=== PATIENT | female | born 1985 | race Caucasian/White ===

== ENCOUNTER 2019-08-04 15:58 | Inpatient (IN) | payer OTHER ==
[2019-08-04 17:30] LABS: Bacteria,Urine 2+ /HPF (Negative); Bilirubin,Urine NEG (Negative); Blood,Urine MOD (Negative); Color,Urine Straw (Yellow); Protein,Urine <15 mg/dL mg/dL (Negative); Urobilinogen,Urine < 2.0 mg/dL (<2.0)
[2019-08-04] MEDS ORDERED: fentaNYL 100 MCG/2 ML INJ IV PRN (20:45)
[2019-08-04] MEDS ORDERED: TERBUTALINE 1 MG/1 ML INJ SUB-Q PRN (20:45)
[2019-08-04] MEDS ORDERED: LIDOCAINE (2%) 20 MG/1 ML VIAL 20 ML MDV INFILTRATI ONE (20:45)
[2019-08-04] MEDS ORDERED: ePHEDrine SULFATE 50 MG/1 ML INJ IV PRN (20:45)
[2019-08-04] MEDS ORDERED: OXYTOCIN 20 UNIT/1000ML DRIP 20 UNITS/1,000 ML BAG IV SCH (21:00)
[2019-08-04] MEDS ORDERED: LACTATED RINGERS 1,000 ML IV SCH (21:00)
--- NOTE | 2019-08-04 21:01 | History and Physical Report ---
History of Present Illness Date of examination: 08/04/19 Date of admission: 08/04/2019 Chief complaint: Contractions, vaginal spotting History of present illness: 33 year old presents to L&D with contractions and small amount of vaginal spotting twice today. Patient denies leaking of fluid. Patient received care at [facility] and she brings recrods with her. LMP 10/29/18. EDC 08/12/19 by 6 week US. significant for the following: UTI (treated and RYAN negative), elevated 1 hour sugar test (normal 3 hour OGTT). labs are as follows: O+, antibody screen negative, rubella immune, hepatitis B surface antigen negative, RPR nonreactive, GC negative, CT negative, GBS negative, 1 hour sugar test 160, 3 hour OGTT negative, quad screen negative. 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 denies: smoking, alcohol abuse, prescription drug abuse, IV drug use - Obstetrical History Expected Date of Delivery: 08/12/19 Actual Gestation: 38 Week(s) 6 Day(s) : 5 Para: 1 Hx # Term Pregnancies: 1 Number of Pregnancies: 0 Spontaneous Abortions: 3 Induced : 0 Number of Living Children: 1 Medications and Allergies Allergies Allergy/AdvReac Type Severity Reaction Status Date / Time No Known Allergies Allergy Verified 07/30/13 18:44 Home Medications Medication Instructions Recorded Confirmed Last Taken Type Cephalexin [Keflex] 500 mg PO TID #21 capsule 07/25/13 Unknown Rx Promethazine [Phenergan] 25 mg PO Q6H PRN #12 tablet 07/25/13 Unknown Rx Ondansetron [Zofran] 4 mg PO Q6HR PRN #12 tablet 07/30/13 Unknown Rx HYDROcodone/APAP 5-325 [[place] 1 each PO Q6HR PRN #12 tablet 08/02/13 Unknown Rx 5-325 mg TAB] Methylergonovine [Methergine] 0.2 mg PO Q8HR #9 tablet 08/02/13 Unknown Rx Active Meds: Active Medications Ephedrine Sulfate (Ephedrine Sulfate) 10 mg IV Q2M PRN PRN Reason: Hypotension Fentanyl (Sublimaze) 100 mcg IV Q2H PRN PRN Reason: Labor Pain Oxytocin/Sodium Chloride (Pitocin/Ns 20 Unit/1000ml Drip) 20 units in 1,000 mls @ 125 mls/hr IV DIRECT TANIYA Lactated Ringer's (Lactated Ringers) 1,000 mls @ 125 mls/hr IV DIRECT TANIYA Lidocaine (Xylocaine 2%) 20 ml INFILTRATI ONCE ONE Stop: 08/04/19 20:46 Terbutaline Sulfate (Brethine) 0.25 mg SUB-Q ONCE PRN PRN Reason: Hyperstimulation/Hypertonicity Review of Systems All systems: negative (contractions, vaginal spotting) - Vital Signs Vital signs: Vital Signs Pulse Pulse Ox 66 94 08/04/19 16:57 08/04/19 16:57 Temp Pulse Resp BP Pulse Ox 98.1 F 71 20 113/69 99 08/04/19 16:59 08/04/19 20:47 08/04/19 16:59 08/04/19 16:59 08/04/19 20:47 - Physical Exam Abdomen: Positive: normal appearance, soft. Negative: distention, tenderness, guarding, rigidity Genitourinary (Female): Positive: normal external genitalia, normal perenium. Negative: perineal/vulvar lesions Vagina: Positive: normal moisture Uterus: Positive: enlarged. Negative: tender Anus/Rectum: Positive: normal perianal skin Extremities: Positive: normal. Negative: tenderness, edema - Obstetrical FHR: category 1 Uterine Contraction Monitor Mode: External Cervical Dilatation: 5 Cervical Effacement Percentage: 90 station: -3 Results Abnormal lab results 08/04/19 Range/Units 16:50 Urine WBC (Auto) 25.0 H (0.0-6.0) /HPF All other labs normal. Assessment and Plan A: at 38 weeks, 6 days gestation. Active labor. GBS negative. P: Admit. Continuous EFM. Anticipate vaginal .
--- NOTE | 2019-08-04 22:40 | Ultrasound Report ---
ULTRASOUND OBSTETRIC LIMITED ULTRASOUND BIOPHYSICAL PROFILE INDICATION / CLINICAL INFORMATION: Abdominal pain. Spotting. Evaluate placenta and amniotic fluid index. COMPARISON: None available. FINDINGS: BREATHING MOVEMENT = 0 GROSS BODY MOVEMENT = 2 TONE = 2 QUALITATIVE AMNIOTIC FLUID VOLUME = 2 TOTAL BIOPHYSICAL SCORE = 6/8 AMNIOTIC FLUID INDEX (cm) = 7.9 PRESENTATION: Cephalic. HEART RATE (beats per minute): 140 ADDITIONAL FINDINGS: The placenta appears unremarkable and is in a right lateral position. IMPRESSION: 1. Biophysical Score = 6/8 2. Amniotic fluid index of 7.9 cm. Signer Name: Smooth Cano MD Signed: 08/04/2019 10:36 PM Workstation Name: [id number]
--- NOTE | 2019-08-04 22:48 | Event Note ---
Date: 08/04/19 SVE 6./-2.
[2019-08-04 22:59] LABS: Hematocrit 38.5 % (30.3-42.9); Hemoglobin 12.9 gm/dl (10.1-14.3); Mean Corpuscular HGB Conc 34 % (30-34); Mean Corpuscular Volume 90 fl (79-97); Platelet Count 157 K/mm3 (140-440); Red Blood Count 4.26 M/mm3 (3.65-5.03); Red Cell Distribution Width 14.4 % (13.2-15.2)
[2019-08-05] MEDS ORDERED: ePHEDrine SULFATE 50 MG/1 ML INJ IV PRN (00:17)
[2019-08-05] MEDS ORDERED: NALOXONE 2 MG/2 ML INJ IV PRN (00:17)
--- NOTE | 2019-08-05 00:31 | Anesthesia Consultation ---
Anesthesia Consult and Med Hx Date of service: 08/05/19 - Airway Anesthetic Teeth Evaluation: Good ROM Head & Neck: Adequate Mental/Hyoid Distance: Adequate Mallampati Class: Class II Intubation Access Assessment: Probably Good - Pulmonary Exam CTA: Yes - Cardiac Exam Cardiac Exam: RRR - Pre-Operative Health Status ASA Pre-Surgery Classification: ASA2 Proposed Anesthetic Plan: Epidural - Pulmonary Hx Smoking: No Hx Asthma: No Hx Respiratory Symptoms: No SOB: No COPD: No Home Oxygen Therapy: No Hx Pneumonia: No Hx Sleep Apnea: No - Cardiovascular System Hx Hypertension: No Hx Coronary Artery Disease: No Hx Heart Attack/AMI: No Hx Angina: No Hx Percutaneous Transluminal Coronary Angioplasty (PTCA): No Hx Cardia Arrhythmia: No Hx Pacemaker: No Hx Internal Defibrillator: No Hx Valvular Heart Disease: No Hx Heart Murmur: No Hx Peripheral Vascular Disease: No - Central Nervous System Hx Neuromuscular Disorder: No Hx Seizures: No CVA: No Hx Back Pain: Yes Hx Psychiatric Problems: No - Gastrointestinal Hx Ulcer: No Hx Gastroesophageal Reflux Disease: Yes - Endocrine Hx Renal Disease: Yes (pyelonephritis 5 days hospital) Hx End Stage Renal Disease: No Hx Cirrhosis: No Hx Liver Disease: No Hx Insulin Dependent Diabetes: No Hx Non-Insulin Dependent Diabetes: No Hx Thyroid Disease: No Hx Hypothyroidism: No Hx Hyperthyroidism: No - Hematic Hx Anemia: No Hx Sickle Cell Disease: No - Other Systems Hx Alcohol Use: No Hx Substance Use: No Hx Cancer: No Hx Obesity: Yes (BMI 31.6)
[2019-08-05] MEDS ORDERED: fentaNYL-BUPIV 2 MCG/ML-0.125% 200 MCG/100 ML BAG EPIDURAL SCH (01:00)
[2019-08-05] MEDS ORDERED: DEXMEDETOMIDINE 200 MCG/2 ML VIAL IV ONE (01:10)
[2019-08-05] MEDS ORDERED: LIDOCAINE (2%) 20 MG/1 ML VIAL 20 ML MDV INFILTRATI ONE (04:30)
[2019-08-05] MEDS ORDERED: ONDANSETRON 4 MG/2 ML INJ ONE (05:51)
[2019-08-05 06:16] LABS: Basophils % (Auto) 0.3 % (0.0-1.8); Eosinophils % (Auto) 0.1 % (0.0-4.3); Hematocrit 27.7 % (30.3-42.9); Hemoglobin 9.2 gm/dl (10.1-14.3); Lymphocytes # (Auto) 1.6 K/mm3 (1.2-5.4); Lymphocytes % (Auto) 14.3 % (13.4-35.0); Mean Corpuscular HGB Conc 33 % (30-34); Mean Corpuscular Volume 91 fl (79-97); Monocytes # (Auto) 0.8 K/mm3 (0.0-0.8); Monocytes % (Auto) 7.3 % (0.0-7.3); Platelet Count 161 K/mm3 (140-440); Red Blood Count 3.05 M/mm3 (3.65-5.03); Red Cell Distribution Width 14.4 % (13.2-15.2)
[2019-08-05] MEDS ORDERED: SODIUM CHLORIDE 0.9% 500 ML 500 ML IV ONE (06:49)
[2019-08-05] MEDS ORDERED: MAGNESIUM HYDROXIDE (MOM) ORAL LIQD UDC PO PRN (07:37)
[2019-08-05] MEDS ORDERED: LANOLIN/ZINC/DIMETHICONE (LANSINOH) 7 GM TP PRN (07:37)
[2019-08-05 07:39] LABS: Hematocrit 21.2 % (30.3-42.9); Hemoglobin 7.1 gm/dl (10.1-14.3)
--- NOTE | 2019-08-05 07:44 | Procedure Note ---
OB Delivery Note - Delivery Date of Delivery: 08/05/19 Surgeon: LUCIEN OLVERA Estimated blood loss: 500cc - Vaginal Delivery presentation: vertex Delivery position: OP Intrapartum events: hemorrhage Delivery induction: none Delivery monitor: external FHT, external uterine Route of delivery: Delivery placenta: spontaneous Delivery cord: 3 umbilical vessels Episiotomy: midline Delivery laceration: 2nd degree Delivery repair: vicryl Anesthesia: local, epidural Delivery comments: Spontaneous vaginal delivery at 04:51 of liveborn male weighing 8 lb. 5 oz. over second degree midline episiotomy with apgars of 8/9. head was delivered OP; shoulders atraumatic. Baby placed skin to skin with mom immedia tely after delivery. Spontaneous cry and respirations. Baby dried and suctioned with bulb. 3 vessel cord double clamped and cut. Cord blood obtained. Spontaneous delivery of intact placenta and membranes by botello mechanism. Pitocin to IV fluids after delivery of placenta. Fundus firm and midline. 2nd degree episiotomy and large vaginal sidewall laceration with profuse bleeding noted. Dr. Cervantes called to delivery room to assist laceration repair. Vaginal sidewall laceration repaired by Dr. Cervnates with 2-0 vicryl. 2nd degree episiotomy repaired by Bienvenido Olvera CNM with 2-0 vicryl. Vaginal sweep negative. Patient had dizziness and hypotension soon after delivery. Stat H&H ordered, IV fluid bolus given, second IV line obtained, and 2 units of PRBCs ordered. MET team called, EKG obtained. notified.
[2019-08-05] MEDS: IBUPROFEN 600 MG TAB PO SCH ×2 (09:12→18:26)
[2019-08-05] MEDS ORDERED: HETASTARCH 6% 500 ML IV ONE (09:20)
[2019-08-05 10:47] LABS: Hematocrit 22.7 % (30.3-42.9); Hemoglobin 7.6 gm/dl (10.1-14.3); Mean Corpuscular HGB Conc 34 % (30-34); Mean Corpuscular Volume 91 fl (79-97); Platelet Count 108 K/mm3 (140-440); Red Blood Count 2.51 M/mm3 (3.65-5.03)
[2019-08-05 11:24] LABS: Alanine Aminotransferase 13 units/L (7-56); Albumin 1.7 g/dL (3.9-5); BUN/Creatinine Ratio 26; Blood Urea Nitrogen 13 mg/dL (7-17); Calcium 6.8 mg/dL (8.4-10.2); Hemolysis Index 11
[2019-08-05 11:29] LABS: Basophils % (Manual) 0 % (0.0-1.8); Eosinophils % (Manual) 0 % (0.0-4.3); Total Cells Counted 100
[2019-08-05 11:30] LABS: Platelet Estimate Consistent w Auto; RBC Morphology Normal
[2019-08-05 19:20] LABS: Hematocrit 21.8 % (30.3-42.9); Hemoglobin 7.4 gm/dl (10.1-14.3)
[2019-08-05] MEDS: HYDROcodone/ACETAMINOPHEN 5-325 MG TAB PO PRN (22:33)
[2019-08-05] MEDS: FERROUS SULFATE 325 MG TAB PO SCH (23:13)
[2019-08-06] MEDS: IBUPROFEN 600 MG TAB PO SCH ×2 (06:17→15:05)
[2019-08-06] MEDS: FERROUS SULFATE 325 MG TAB PO SCH ×2 (08:20→15:06)
--- NOTE | 2019-08-06 09:51 | XRay Report ---
AP pelvis INDICATION: Possible retained foreign body. COMPARISON: None. IMPRESSION: Portions of the right hip and right iliac wing were excluded from view on this exam. The re is no radiopaque foreign body in the pelvis. No significant incidental soft tissue or osseous fin ding. Signer Name: Jose Stevenson MD Signed: 08/06/2019 9:47 AM Workstation Name: [id number]
--- NOTE | 2019-08-06 09:54 | Progress Note ---
Assessment and Plan A: day 1 S/P with hemorrhage. Anemia secondary to blood loss, S/P blood transfusion. P: Continue iron supplementation TID. Encouraged patient to ambulate. Subjective - Subjective Date of service: 08/06/19 Principal diagnosis: day 1 S/P Interval history: day 1 S/P . Patient reports small amount of lochia. Patient reports she is voiding without difficulty. Tolerating a regular diet. Ambulating without difficulty. Patient denies headache, dizziness, shortness of breath, chest pain, leg pain, heavy bleeding, abdominal pain, or any other problems. Patient reports: appetite normal, voiding normally, pain well controlled, flatus, ambulating normally, no dizzy ambulation, no nauseated Ralph: doing well Objective - Vital Signs Latest vital signs: Vital Signs Temp Pulse Resp BP BP Pulse Ox 08/06/19 08:44 98.0 F 87 18 103/44 99 08/06/19 01:25 98.4 F 98 H 18 92/48 98 08/05/19 16:30 98.2 F 92 H 18 106/46 99 08/05/19 13:15 98.1 F 91 H 18 108/51 97 08/05/19 12:56 98 H 99 08/05/19 12:51 86 98 08/05/19 12:47 83 116/58 08/05/19 12:46 89 99 08/05/19 12:41 91 H 99 08/05/19 12:36 98 H 99 08/05/19 12:32 103 H 119/56 08/05/19 12:31 97 H 99 08/05/19 12:26 94 H 98 08/05/19 12:21 89 99 08/05/19 12:18 86 110/55 08/05/19 12:16 86 98 08/05/19 12:11 86 99 08/05/19 12:06 88 99 08/05/19 12:01 76 99 08/05/19 12:00 98.0 F 08/05/19 11:56 88 111/57 99 08/05/19 11:51 89 100 08/05/19 11:46 87 111/53 98 08/05/19 11:41 89 99 08/05/19 11:36 88 105/53 99 08/05/19 11:31 87 99 08/05/19 11:26 88 109/53 99 08/05/19 11:21 91 H 99 08/05/19 11:16 82 107/54 99 08/05/19 11:11 83 99 08/05/19 11:06 84 99 08/05/19 11:04 78 111/56 08/05/19 11:01 86 99 08/05/19 10:59 80 107/54 08/05/19 10:56 85 100 08/05/19 10:54 85 109/55 08/05/19 10:51 85 99 08/05/19 10:49 83 105/57 08/05/19 10:46 92 H 98 08/05/19 10:44 83 107/55 08/05/19 10:41 84 99 08/05/19 10:39 86 107/53 08/05/19 10:36 85 99 08/05/19 10:34 88 104/55 08/05/19 10:31 89 99 08/05/19 10:29 89 108/54 08/05/19 10:26 92 H 99 08/05/19 10:24 84 102/52 08/05/19 10:21 87 100 08/05/19 10:19 89 106/56 08/05/19 10:16 90 100 08/05/19 10:14 85 108/55 08/05/19 10:11 91 H 100 08/05/19 10:09 81 101/59 08/05/19 10:06 89 100 08/05/19 10:04 86 98/56 08/05/19 10:01 97 H 99 08/05/19 09:59 88 97/55 08/05/19 09:56 82 100 08/05/19 09:54 81 102/54 08/05/19 09:51 81 100 Intake and Output 08/05/19 08/06/19 08/06/19 23:59 07:59 15:59 Intake Total 50 360 Output Total 1350 950 300 Balance -1300 -590 -300 Intake: IV 50 CLEOCIN 900 MG/50 mL 900 50 mg In 50 ml @ 100 mls/hr IV Q8H [facility] Rx#:[id number] Intake, Free Water 360 Output: Urine 1350 950 300 Indwelling Catheter 1350 950 300 Other: Total, Output Amount 550 250 300 # Voids Indwelling Catheter 1 - Exam Cardiovascular: Present: Regular rate, Normal S1, Normal S2, No murmurs Lungs: Present: Clear to auscultation Abdomen: Present: normal appearance, soft, normal bowel sounds. Absent: distention, tenderness, guarding, rigidity Uterus: Present: normal, firm, fundal height below umbilicus. Absent: bogginess, tenderness Extremities: Present: normal, edema (mild edema in ankles and feet bilaterally). Absent: tenderness - Labs Labs: Abnormal lab results 08/05/19 08/05/19 08/05/19 Range/Units 01:00 10:20 10:20 WBC 17.2 H (4.5-11.0) K/mm3 RBC 2.51 L (3.65-5.03) M/mm3 Hgb 7.6 L (10.1-14.3) gm/dl Hct 22.7 L (30.3-42.9) % Plt Count 108 L (140-440) K/mm3 Seg Neuts % (Manual) 97.0 H (40.0-70.0) % Lymphocytes % (Manual) 1.0 L (13.4-35.0) % Seg Neutrophils # Man 16.7 H (1.8-7.7) K/mm3 Lymphocytes # (Manual) 0.2 L (1.2-5.4) K/mm3 Carbon Dioxide 17 L (22-30) mmol/L Creatinine 0.5 L (0.7-1.2) mg/dL Glucose 144 H (65-100) mg/dL Calcium 6.8 L (8.4-10.2) mg/dL Total Protein 3.3 L (6.3-8.2) g/dL Albumin 1.7 L (3.9-5) g/dL Crossmatch See Detail 08/05/19 Range/Units 19:01 WBC (4.5-11.0) K/mm3 RBC (3.65-5.03) M/mm3 Hgb 7.4 L (10.1-14.3) gm/dl Hct 21.8 L (30.3-42.9) % Plt Count (140-440) K/mm3 Seg Neuts % (Manual) (40.0-70.0) % Lymphocytes % (Manual) (13.4-35.0) % Seg Neutrophils # Man (1.8-7.7) K/mm3 Lymphocytes # (Manual) (1.2-5.4) K/mm3 Carbon Dioxide (22-30) mmol/L Creatinine (0.7-1.2) mg/dL Glucose (65-100) mg/dL Calcium (8.4-10.2) mg/dL Total Protein (6.3-8.2) g/dL Albumin (3.9-5) g/dL Crossmatch
[2019-08-06] MEDS: WITCH HAZEL/ GLYCERIN PAD TP PRN (15:06)
[2019-08-06] MEDS ORDERED: BENZOCAINE/MENTHOL 20/0.5% TOP SPRAY 56 GM TP PRN (15:07)
[2019-08-06] MEDS: HYDROcodone/ACETAMINOPHEN 5-325 MG TAB PO PRN (15:43)
[2019-08-07] MEDS: IBUPROFEN 600 MG TAB PO SCH ×5 (00:51→20:47)
[2019-08-07] MEDS: FERROUS SULFATE 325 MG TAB PO SCH ×4 (00:51→20:47)
--- NOTE | 2019-08-07 09:24 | Progress Note ---
Assessment and Plan - Patient Problems (1) (normal spontaneous vaginal delivery) Current Visit: Yes Status: Acute Plan to address problem: Continue routine PP orders Anticipate d/c home tomorrow if asymptomatic with anemia (2) Secondary hemorrhage with baby delivered with problem Current Visit: Yes Status: Acute (3) Anemia Current Visit: Yes Status: Acute Qualifiers: Anemia type: other cause Other causes of anemia: acute posthemorrhagic Qualified Code(s): D62 - Acute posthemorrhagic anemia Plan to address problem: Will continue to monitor for another 24 hrs Anticipate d/c home tomorrow if asymptomatic Continue daily oral supplementation as directed with OJ Increase iron rich foods into diet Subjective - Subjective Date of service: 08/07/19 Principal diagnosis: day 2 S/P ; Anemia Interval history: See admission H & P; OB delivery summary and PP progress notes Patient reports: appetite normal, voiding normally, pain well controlled, flatus, ambulating normally (but does report, some light-headiness this AM when standing. Instructed to sit on side of bed before standing, and call for assistance before ambulating if family is not present.), no bowel movement Geff: doing well, bottle feeding (and breasfeeding) Objective - Vital Signs Latest vital signs: Vital Signs Temp Pulse Resp BP BP Pulse Ox 08/07/19 07:46 98.1 F 81 18 113/55 08/07/19 00:26 98.3 F 88 20 109/46 98 08/06/19 16:48 109 H 18 121/60 98 08/06/19 15:05 20 Intake and Output 08/06/19 08/07/19 08/07/19 23:59 07:59 15:59 Intake Total 480 480 Balance 480 480 Intake: Oral 480 Intake, Free Water 480 Other: Total, Intake Amount 480 # Voids Void 1 - Exam Narrative Exam: Pt appears slightly pale in color Breasts: Present: normal Cardiovascular: Present: Regular rate Lungs: Present: Normal air movement Abdomen: Present: soft Uterus: Present: firm, fundal height below umbilicus (U-1) Extremities: Present: normal Deep Tendon Reflex Grade: Normal +2 Incision: Present: other (2nd degree laceration site healing as expected, some tenderness)
[2019-08-07] MEDS: WITCH HAZEL/ GLYCERIN PAD TP PRN ×3 (12:00→17:40)
[2019-08-08] MEDS: IBUPROFEN 600 MG TAB PO SCH ×2 (03:07→11:03)
[2019-08-08 06:29] LABS: Hemoglobin 6.7 gm/dl (10.1-14.3)
[2019-08-08 07:28] LABS: Hematocrit 19.9 % (30.3-42.9)
[2019-08-08 09:52] VITALS: BP 102/60
[2019-08-08] MEDS ORDERED: IRON DEXTRAN COMPLEX 100 MG/2 ML INJ IM NR (10:00)
--- NOTE | 2019-08-08 10:02 | Progress Note ---
Assessment and Plan - Patient Problems (1) (normal spontaneous vaginal delivery) Current Visit: Yes Status: Acute Plan to address problem: D/c home today F/U with clinic in 1 week (2) Secondary hemorrhage with baby delivered with problem Current Visit: Yes Status: Acute (3) Anemia Current Visit: Yes Status: Acute Qualifiers: Anemia type: other cause Other causes of anemia: acute posthemorrhagic Qualified Code(s): D62 - Acute posthemorrhagic anemia Plan to address problem: Discharge today per pt request Infed 100 mg IM x 1 dose prior to discharge home Continue daily oral supplementation as directed with OJ Increase iron rich foods into diet F/U with clinic in 1 week Subjective - Subjective Date of service: 08/08/19 Principal diagnosis: day 3 S/P ; Anemia Interval history: See admission H & P; OB delivery summary and PP progress notes Patient reports: appetite normal, voiding normally, pain well controlled, flatus, ambulating normally, other (Feeling much better than yesterday. Discussed Hgb of 6.7 today and advised to have an additional unit of PRBCs. Pt and declined additional unit of blood, but did agree to have Infed injection and continue daily po iron supplementation TID. Also agrees to f/u in clinic in 1 week.) [place]: doing well, bottle feeding (and . Education on proper latch reviewed with pt and ) Objective - Vital Signs Latest vital signs: Vital Signs Temp Pulse Resp BP BP Pulse Ox 08/08/19 07:59 98.5 F 72 18 102/60 08/08/19 01:38 98.2 F 80 16 103/53 98 08/07/19 17:06 98.8 F 91 H 18 125/49 Intake and Output 08/07/19 08/08/19 08/08/19 23:59 07:59 15:59 Intake Total 480 960 Balance 480 960 Intake: Oral 480 480 Intake, Free Water 480 Other: Total, Intake Amount 480 480 # Voids Void 3 2 - Exam Breasts: Present: normal, . Absent: swelling, mass, pain, tender, engorged Cardiovascular: Present: Regular rate Lungs: Present: Normal air movement Abdomen: Present: soft Uterus: Present: firm, fundal height below umbilicus (U-2) Extremities: Present: normal Deep Tendon Reflex Grade: Normal +2 Incision: Present: other (2nd degree laceration site healing as expected) - Labs Labs: Abnormal lab results 08/08/19 Range/Units 05:57 Hgb 6.7 L (10.1-14.3) gm/dl Hct 19.9 L* (30.3-42.9) %
--- NOTE | 2019-08-08 10:09 | Discharge Summary ---
Providers - Providers Date of Admission: 08/04/19 21:16 Date of discharge: 08/08/19 (1200) Attending physician: ANDREW GARCIA Primary care physician: ANDREW GARCIA Hospitalization Reason for admission: IUP at term Delivery: Episiotomy: none Laceration: 2nd degree (healing as expected) Other procedures: none complications: transfusion (2 units PRBC secondary to post- hemorrhage) Discharge diagnosis: other (S/P ; anemia) [place] baby: male Hospital course: See admission H&P; OB delivery summary and PP progress notes Condition at discharge: Stable Disposition: DC-01 TO HOME OR SELFCARE - Discharge Diagnoses (1) (normal spontaneous vaginal delivery) Status: Acute (2) Secondary hemorrhage with baby delivered with problem Status: Acute (3) Anemia Status: Acute Qualifiers: Anemia type: other cause Other causes of anemia: acute posthemorrhagic Qualified Code(s): D62 - Acute posthemorrhagic anemia Plan - Discharge Medications Prescriptions: Ferrous Sulfate [Feosol 325 MG tab] 325 mg PO TID 30 Days #90 tablet - Provider Discharge Summary Activity: routine, no sex for 6 weeks, no heavy lifting 4 weeks, no strenuous exercise Diet: other (Iron rich diet) Instructions: routine Additional instructions: [] Smoking cessation referral if applicable(refer to patient education folder for contact #) [] Refer to [facility]'s [facility] Booklet Call your doctor immediately for: * Fever > 100.5 * Heavy vaginal bleeding ( >1 pad per hour) * Severe persistent headache * Shortness of breath * Reddened, hot, painful area to leg or breast * Drainage or odor from incision. * Keep laceration site clean and dry at all times and follow doctor's instru ctions regarding bathing/showering * Continue daily oral iron supplementation three times per day with OJ * Follow up with clinic in 1 week - Follow up plan Follow up: ANDREW GARCIA MD [Primary Care Provider] - 7 Days Forms: [facility] Discharge Summary
[2019-08-08] MEDS: WITCH HAZEL/ GLYCERIN PAD TP PRN (11:03)
[2019-08-08] MEDS: FERROUS SULFATE 325 MG TAB PO SCH (11:04)
== END 2019-08-08 14:45 | disposition home or self-care (01) | DRG 806 ==
LOC: TRG 15:58 → LD 21:16 → OB 08-05 13:33
PROVIDERS: ADMIT Obstetrics & Gynecology; ATTEND Obstetrics & Gynecology
PROC: 10E0XZZ Delivery of Products of Conception, External Approach (ICD-10-PCS; principal; 2019-08-05)
PROC: 0KQM0ZZ Repair Perineum Muscle, Open Approach (ICD-10-PCS; 2019-08-05)
PROC: 30233N1 Transfusion of Nonautologous Red Blood Cells into Peripheral Vein, Percutaneous Approach (ICD-10-PCS; 2019-08-05)
PROC: 0W8NXZZ Division of Female Perineum, External Approach (ICD-10-PCS; 2019-08-05)
PROC: 3E0R3BZ Introduction of Anesthetic Agent into Spinal Canal, Percutaneous Approach (ICD-10-PCS; 2019-08-05)
PROC: 00HU33Z Insertion of Infusion Device into Spinal Canal, Percutaneous Approach (ICD-10-PCS; 2019-08-05)
DX: O99.62 Diseases of the digestive system complicating childbirth (principal); D62 Acute posthemorrhagic anemia; Z37.0 Single live birth; K21.9 Gastro-esophageal reflux disease without esophagitis; O99.214 Obesity complicating childbirth; O70.1 Second degree perineal laceration during delivery; O72.1 Other immediate postpartum hemorrhage; O99.02 Anemia complicating childbirth; O26.53 Maternal hypotension syndrome, third trimester; Z3A.38 38 weeks gestation of pregnancy; Z79.899 Other long term (current) drug therapy
CPT/HCPCS: 36415; 72170; 76815; 76819; 80053; 81001; 82962; 85007; 85014; 85018; 85025; 85027; 86850; 86900; 86901; 86920; 87086; 93005; 93010; G0378; A6250; J1750; J2405; J2590; J3010; J3490; J7040; J7120; P9016